=== PATIENT | female | born 1995 ===

== ENCOUNTER 2023-07-21 13:30 | Emergency (ER) | payer BC ==
[2023-07-21 14:24] LABS: CORONAVIRUS COVID-19 NAA NEGATIVE (NEGATIVE); INFLUENZA A NAA NEGATIVE (NEGATIVE); INFLUENZA B NAA NEGATIVE (NEGATIVE); RESPIRATORY SYNCYTIAL VIR NAA NEGATIVE (NEGATIVE)
== END 2023-07-21 14:09 | disposition home or self-care (01) ==
LOC: MW.ED 13:30
DX: J02.9 Acute pharyngitis, unspecified (principal); Z20.822 Contact with and (suspected) exposure to COVID-19
CPT/HCPCS: 0241U; 87651; 99283

== ENCOUNTER 2024-01-24 09:10 | Emergency (ER) | payer BC ==
[2024-01-24] MEDS: Acetaminophen 500 MG Tab PO ONE (10:17)
[2024-01-24] MEDS: Ibuprofen 400 MG Tab PO ONE (10:18)
== END 2024-01-24 11:04 | disposition home or self-care (01) ==
LOC: MW.ED 09:10
DX: J02.9 Acute pharyngitis, unspecified (principal); Z79.899 Other long term (current) drug therapy
CPT/HCPCS: 87651; 99283; A9270